=== PATIENT | female | born 1985 | race Asian ===

== ENCOUNTER → 2016-12-21 10:39 | Outpatient (CLI) | payer OTHER | END | disposition short-term general hospital (02) | LOC: AMB 10:39 | DX: R06.02 Shortness of breath (principal) ==

== ENCOUNTER 2018-08-26 09:10 | Emergency (ER) | payer OTHER ==
[~2018-08-26] VITALS: Ht 180.3 cm; Wt 136.1 kg
[2018-08-26 09:10] VITALS: TEMP 97.9
[2018-08-26 09:48] LABS: PLATELET COUNT 249 K/uL (152-353)
[2018-08-26 09:59] LABS: POTASSIUM 4.6 mmol/L (3.6-5.2); SODIUM 139 mmol/L (136-145)
[2018-08-26 11:08] VITALS: BP 142/78
== END 2018-08-26 11:09 | disposition home or self-care (01) ==
LOC: ED 09:10
DX: M94.0 Chondrocostal junction syndrome [Tietze] (principal); R00.1 Bradycardia, unspecified
CPT/HCPCS: 36415; 80053; 81000; 82550; 82553; 84484; 85027; 85651; 87502; 87651; 93005; 99283